=== PATIENT | male | born 1940 | race Caucasian/White ===

== ENCOUNTER 2017-10-27 08:17 | Inpatient (IN) | payer MEDICARE, OTHER ==
[~2017-10-27] VITALS: Ht 177.8 cm; Wt 143.0 kg
[2017-10-27] MEDS ORDERED: ASPIRIN 81 MG TABLET CHEW PO ONE (09:00)
[2017-10-27] MEDS ORDERED: SODIUM CHLORIDE 0.9% 1,000ML IVBOLUS ONE ×2 (09:00)
[2017-10-27] MEDS ORDERED: ASPIRIN 81 MG TABLET CHEW ONE (09:11)
[2017-10-27 09:16] LABS: BASOPHILS # (AUTO) 0.03 x10^3/uL (0-0.1); BASOPHILS % (AUTO) 0 % (0-1); EOSINOPHILS # (AUTO) 0.01 x10^3/uL (0-0.4); EOSINOPHILS % (AUTO) 0 % (1-7); LYMPHOCYTES % (AUTO) 6 % (22-44); MD NO; MEAN CORPUSCULAR HEMOGLOBIN 29.8 pg (27.5-34.5); MEAN CORPUSCULAR HGB CONC 31.8 g/dL (33.2-36.2); MEAN CORPUSCULAR VOLUME 93.6 fL (81-97); MEAN PLATELET VOLUME 8.5 fL (7.4-10.4); MONOCYTES # (AUTO) 0.64 x10^3/uL (0.2-0.8); MONOCYTES % (AUTO) 7 % (2-9); NEUTROPHILS # (AUTO) 8.38 x10^3/uL (1.8-6.8); NEUTROPHILS % (AUTO) 87 % (42-75); PLATELET COUNT 208 x10^3/uL (130-400); RED BLOOD COUNT 3.77 x10^6/uL (4.38-5.82); RED CELL DISTRIBUTION WIDTH 16.2 % (9.4-14.8)
[2017-10-27 09:23] LABS: INTERNATIONAL NORMALIZED RATIO 1.23 (0.93-1.1)
[2017-10-27 09:29] LABS: ALBUMIN 2.3 g/dL (3.4-5.0); ANION GAP 7 mmol/L (5-15); CALCIUM 7.9 mg/dL (8.5-10.1); CHLORIDE 106 mmol/L (98-107)
[2017-10-27 09:35] LABS: ALANINE AMINOTRANSFERASE 17 U/L (12-78); ALKALINE PHOSPHATASE 71 U/L (45-117); BILIRUBIN,TOTAL 0.7 mg/dL (0.2-1.0); CREATININE 1.41 mg/dL (0.7-1.3); FREE T4 (FREE THYROXINE) 1.11 ng/dL (0.76-1.46); PROTHROMBIN TIME 12.7 Seconds (9.6-11.5); TOTAL PROTEIN 7.6 g/dL (6.4-8.2); TROPONIN I 0.073 ng/mL (0.000-0.045)
[2017-10-27 09:53] LABS: ACETONE, SERUM Negative (Negative)
[2017-10-27] MEDS ORDERED: ASPI-515 PO (10:22)
[2017-10-27] MEDS ORDERED: HEPARIN 5,000 UNITS/ML, 1ML ONE (11:48)
[2017-10-27] MEDS ORDERED: METOPROLOL 1 MG/ML, 5ML ONE (11:48)
[2017-10-27] MEDS ORDERED: HEPARIN 25,000 UNITS/500ML PMX 500 ML ONE (11:48)
[2017-10-27] MEDS ORDERED: METOPROLOL 1 MG/ML, 5ML IVPush ONE (12:00)
[2017-10-27 12:21] LABS: MICROSCOPIC INDICATED
[2017-10-27 12:24] LABS: CULTURE INDICATED? YES
[2017-10-27] MEDS ORDERED: NITROGLYCERIN 0.4 MG BOTTLE (25 TABS) SL PRN (12:30)
[2017-10-27] MEDS ORDERED: ONDANSETRON 2MG/ML, 2ML IV PRN (12:30)
[2017-10-27] MEDS ORDERED: BISACODYL 5 MG EC TABLET PO PRN (12:30)
[2017-10-27] MEDS ORDERED: FUROSEMIDE 20 MG/2 ML IVPush SCH ×2 (12:30→21:00)
[2017-10-27] MEDS ORDERED: FUROSEMIDE 20 MG/2 ML ONE (12:48)
[2017-10-27] MEDS ORDERED: FAMOTIDINE 20 MG/2 ML ONE (12:48)
[2017-10-27 12:50] LABS: CHOL/HDL RATIO 2.3
[2017-10-27] MEDS ORDERED: HEPARIN 5,000 UNITS/ML, 1ML IV ONE (13:00)
[2017-10-27 13:07] LABS: HEMOGLOBIN A1C 9.5 % (4.2-6.3)
[2017-10-27] MEDS ORDERED: GADOBUTROL 10 MMOL/10 ML VIAL ONE (13:11)
[2017-10-27 13:46] VITALS: BP 122/83
[2017-10-27] MEDS: HEPARIN 25,000 UNITS/500ML PMX 500 ML IV PRN (13:58)
[2017-10-27] MEDS: FAMOTIDINE 20 MG TABLET PO SCH (14:58)
[2017-10-27] MEDS: INSULIN LISPRO 100 UNITS/ML, PEN SQ-INSULIN SCH ×3 (14:58→21:00)
[2017-10-27] MEDS: CEFTRIAXONE 1,000 MG in SODIUM CHLORIDE 0.9% 50 ML IV SCH (15:16)
[2017-10-27] MEDS: NYSTATIN TOPICAL POWDER 15GM TP SCH ×3 (15:16→21:27)
[2017-10-27 15:49] VITALS: BP 122/72
[2017-10-27 17:50] VITALS: BP 106/63
[2017-10-27] MEDS: CARVEDILOL 12.5 MG TABLET PO SCH (17:52)
[2017-10-27 18:56] VITALS: BP 116/83
[2017-10-27] MEDS ORDERED: DEXTROSE 4 GM TAB.CHEW PO PRN (21:00)
[2017-10-27] MEDS ORDERED: DEXTROSE 50%, 50ML SYRINGE IVPush PRN (21:00)
[2017-10-27] MEDS: INSULIN GLARGINE 100 UNITS/ML, PEN SQ-INSULIN SCH (21:00)
[2017-10-27] MEDS ORDERED: GLUCAGON 1 MG IM PRN (21:00)
[2017-10-27] MEDS: FUROSEMIDE 20 MG/2 ML IVPush SCH (21:28)
[2017-10-27] MEDS: SODIUM CHLORIDE FLUSH 10ML SYR IVF SCH ×2 (21:28)
[2017-10-27] MEDS: HEPARIN 5,000 UNITS/ML, 1ML IV PRN (21:28)
[2017-10-28 01:12] LABS: AMPHETAMINE SCREEN, URINE Negative (Negative); BARBITURATE SCREEN, URINE Negative (Negative); BENZODIAZEPINE SCREEN, URINE Negative (Negative); CANNABINOID SCREEN, URINE Negative (Negative); COCAINE SCREEN, URINE Negative (Negative); METHADONE SCREEN, URINE Negative (Negative); OPIATE SCREEN, URINE Negative (Negative)
[2017-10-28 01:23] VITALS: BP 110/50
[2017-10-28 03:49] LABS: TROPONIN I 0.067 ng/mL (0.000-0.045)
[2017-10-28 05:35] VITALS: BP 107/71
[2017-10-28] MEDS: CARVEDILOL 12.5 MG TABLET PO SCH ×2 (05:36→18:09)
[2017-10-28] MEDS: ASPIRIN 81 MG TABLET EC PO SCH (05:37)
[2017-10-28] MEDS: LEVOTHYROXINE 25 MCG TABLET PO SCH (05:37)
[2017-10-28] MEDS: HEPARIN 5,000 UNITS/ML, 1ML IV PRN (05:37)
[2017-10-28] MEDS ORDERED: LEVOTHYROXINE 50 MCG TABLET PO SCH (06:00)
[2017-10-28 07:31] VITALS: BP 114/56
[2017-10-28 08:11] LABS: BASOPHILS # (AUTO) 0.03 x10^3/uL (0-0.1); BASOPHILS % (AUTO) 0 % (0-1); EOSINOPHILS # (AUTO) 0.01 x10^3/uL (0-0.4); EOSINOPHILS % (AUTO) 0 % (1-7); LYMPHOCYTES # (AUTO) 0.89 x10^3/uL (1-3.4); LYMPHOCYTES % (AUTO) 9 % (22-44); MD NO; MEAN CORPUSCULAR HEMOGLOBIN 29.6 pg (27.5-34.5); MEAN CORPUSCULAR HGB CONC 31.9 g/dL (33.2-36.2); MEAN CORPUSCULAR VOLUME 92.8 fL (81-97); MEAN PLATELET VOLUME 9.4 fL (7.4-10.4); MONOCYTES # (AUTO) 0.65 x10^3/uL (0.2-0.8); MONOCYTES % (AUTO) 6 % (2-9); NEUTROPHILS # (AUTO) 8.71 x10^3/uL (1.8-6.8); NEUTROPHILS % (AUTO) 85 % (42-75); PLATELET COUNT 199 x10^3/uL (130-400); RED BLOOD COUNT 3.64 x10^6/uL (4.38-5.82); RED CELL DISTRIBUTION WIDTH 16.2 % (9.4-14.8)
[2017-10-28] MEDS: INSULIN LISPRO 100 UNITS/ML, PEN SQ-INSULIN SCH ×4 (08:12→21:00)
[2017-10-28 08:15] LABS: ALANINE AMINOTRANSFERASE 16 U/L (12-78); ANION GAP 11 mmol/L (5-15); CALCIUM 7.6 mg/dL (8.5-10.1); CHLORIDE 105 mmol/L (98-107); CREATININE 1.51 mg/dL (0.7-1.3)
[2017-10-28 08:17] LABS: ALKALINE PHOSPHATASE 64 U/L (45-117); BILIRUBIN,TOTAL 0.6 mg/dL (0.2-1.0); TOTAL PROTEIN 7.2 g/dL (6.4-8.2)
[2017-10-28 08:35] LABS: INTERNATIONAL NORMALIZED RATIO 1.33 (0.93-1.1); PROTHROMBIN TIME 13.8 Seconds (9.6-11.5)
[2017-10-28] MEDS: SODIUM CHLORIDE FLUSH 10ML SYR IVF SCH ×4 (09:00→22:22)
[2017-10-28] MEDS: FUROSEMIDE 20 MG/2 ML IVPush SCH ×2 (09:00→22:21)
[2017-10-28] MEDS: INSULIN GLARGINE 100 UNITS/ML, PEN SQ-INSULIN SCH ×2 (09:00→23:43)
[2017-10-28] MEDS: FAMOTIDINE 20 MG TABLET PO SCH (09:39)
[2017-10-28] MEDS: HEPARIN 25,000 UNITS/500ML PMX 500 ML IV PRN (09:39)
[2017-10-28] MEDS: NYSTATIN TOPICAL POWDER 15GM TP SCH ×3 (13:00→22:42)
[2017-10-28 13:11] VITALS: BP 116/56
[2017-10-28] MEDS: CEFTRIAXONE 1,000 MG in SODIUM CHLORIDE 0.9% 50 ML IV SCH (14:33)
[2017-10-28 19:27] VITALS: BP 122/82
[2017-10-28] MEDS ORDERED: MIDAZOLAM 1 MG/ML, 2ML ONE (19:46)
[2017-10-28] MEDS ORDERED: PROPOFOL 10 MG/ML, 20ML ONE (20:05)
[2017-10-28] MEDS ORDERED: NEOSTIGMINE 1 MG/ML, 10ML ONE (20:05)
[2017-10-28] MEDS ORDERED: FENTANYL PF 250 MCG/5ML ONE (20:38)
[2017-10-28] MEDS ORDERED: OXYcodone 5 MG/5 ML ORAL.SOL UDC PO PRN (21:00)
[2017-10-28] MEDS ORDERED: FENTANYL PF 100 MCG/2ML IV PRN (21:00)
[2017-10-28] MEDS ORDERED: ONDANSETRON ODT 8 MG PO PRN (21:00)
[2017-10-28] MEDS ORDERED: PROMETHAZINE 12.5 MG SUPP PR PRN (21:00)
[2017-10-28] MEDS ORDERED: MORPHINE SULFATE 4 MG/ML, 1ML IVPush PRN (21:00)
[2017-10-29 00:39] VITALS: BP 115/78
[2017-10-29] MEDS: HEPARIN 5,000 UNITS/ML, 1ML IV PRN ×2 (05:10→13:05)
[2017-10-29] MEDS: ASPIRIN 81 MG TABLET EC PO SCH (05:53)
[2017-10-29] MEDS: CARVEDILOL 12.5 MG TABLET PO SCH ×2 (05:53→18:08)
[2017-10-29] MEDS: LEVOTHYROXINE 25 MCG TABLET PO SCH (05:53)
[2017-10-29] MEDS: INSULIN LISPRO 100 UNITS/ML, PEN SQ-INSULIN SCH ×4 (07:00→21:16)
[2017-10-29 07:35] VITALS: BP 124/72
[2017-10-29 08:36] LABS: BASOPHILS # (AUTO) 0.03 x10^3/uL (0-0.1); BASOPHILS % (AUTO) 0 % (0-1); EOSINOPHILS # (AUTO) 0.02 x10^3/uL (0-0.4); EOSINOPHILS % (AUTO) 0 % (1-7); LYMPHOCYTES # (AUTO) 1.13 x10^3/uL (1-3.4); LYMPHOCYTES % (AUTO) 11 % (22-44); MD NO; MEAN CORPUSCULAR HEMOGLOBIN 29.7 pg (27.5-34.5); MEAN CORPUSCULAR HGB CONC 31.8 g/dL (33.2-36.2); MEAN CORPUSCULAR VOLUME 93.3 fL (81-97); MEAN PLATELET VOLUME 9.4 fL (7.4-10.4); MONOCYTES # (AUTO) 0.53 x10^3/uL (0.2-0.8); MONOCYTES % (AUTO) 5 % (2-9); NEUTROPHILS # (AUTO) 9.04 x10^3/uL (1.8-6.8); NEUTROPHILS % (AUTO) 84 % (42-75); PLATELET COUNT 209 x10^3/uL (130-400); RED BLOOD COUNT 3.61 x10^6/uL (4.38-5.82)
[2017-10-29 08:47] LABS: ANION GAP 8 mmol/L (5-15); CALCIUM 8.1 mg/dL (8.5-10.1); CHLORIDE 104 mmol/L (98-107); CREATININE 1.82 mg/dL (0.7-1.3)
[2017-10-29] MEDS: SODIUM CHLORIDE FLUSH 10ML SYR IVF SCH ×3 (09:00→21:00)
[2017-10-29] MEDS: FAMOTIDINE 20 MG TABLET PO SCH (09:08)
[2017-10-29] MEDS: FUROSEMIDE 20 MG/2 ML IVPush SCH ×2 (09:09→22:00)
[2017-10-29] MEDS: INSULIN GLARGINE 100 UNITS/ML, PEN SQ-INSULIN SCH ×2 (09:11→21:16)
[2017-10-29] MEDS: NYSTATIN TOPICAL POWDER 15GM TP SCH ×3 (09:12→21:17)
[2017-10-29] MEDS: HEPARIN 25,000 UNITS/500ML PMX 500 ML IV PRN ×2 (09:47→21:51)
[2017-10-29 13:45] VITALS: BP 127/76
[2017-10-29] MEDS: CEFTRIAXONE 1,000 MG in SODIUM CHLORIDE 0.9% 50 ML IV SCH (14:51)
[2017-10-29 19:30] VITALS: BP 104/64
[2017-10-29] MEDS: ALBUMIN HUMAN 25% 50 ML IV SCH (21:15)
[2017-10-29] MEDS ORDERED: ACETAMINOPHEN 325 MG TABLET ONE (22:03)
[2017-10-29] MEDS: ACETAMINOPHEN 650 MG/20.3 ML UDC PO PRN (22:15)
[2017-10-30 00:40] VITALS: BP 92/59
[2017-10-30 05:48] LABS: BASOPHILS # (AUTO) 0.01 x10^3/uL (0-0.1); BASOPHILS % (AUTO) 0 % (0-1); EOSINOPHILS # (AUTO) 0.07 x10^3/uL (0-0.4); EOSINOPHILS % (AUTO) 1 % (1-7); LYMPHOCYTES # (AUTO) 1.26 x10^3/uL (1-3.4); LYMPHOCYTES % (AUTO) 13 % (22-44); MD NO; MEAN CORPUSCULAR HEMOGLOBIN 30.2 pg (27.5-34.5); MEAN CORPUSCULAR HGB CONC 32.1 g/dL (33.2-36.2); MEAN CORPUSCULAR VOLUME 94.3 fL (81-97); MONOCYTES # (AUTO) 0.89 x10^3/uL (0.2-0.8); MONOCYTES % (AUTO) 9 % (2-9); NEUTROPHILS # (AUTO) 7.85 x10^3/uL (1.8-6.8); NEUTROPHILS % (AUTO) 78 % (42-75); PLATELET COUNT 210 x10^3/uL (130-400); RED BLOOD COUNT 3.55 x10^6/uL (4.38-5.82); RED CELL DISTRIBUTION WIDTH 16.7 % (9.4-14.8)
[2017-10-30 06:00] LABS: ALBUMIN 2.1 g/dL (3.4-5.0); CHLORIDE 103 mmol/L (98-107)
[2017-10-30 06:03] LABS: ANION GAP 10 mmol/L (5-15); CALCIUM 8.1 mg/dL (8.5-10.1); CREATININE 2.22 mg/dL (0.7-1.3)
[2017-10-30] MEDS ORDERED: ACETAMINOPHEN 325 MG TABLET ONE (06:17)
[2017-10-30] MEDS: LEVOTHYROXINE 25 MCG TABLET PO SCH (06:27)
[2017-10-30] MEDS: ASPIRIN 81 MG TABLET EC PO SCH (06:27)
[2017-10-30] MEDS: ACETAMINOPHEN 650 MG/20.3 ML UDC PO PRN (06:27)
[2017-10-30 06:28] VITALS: BP 102/67
[2017-10-30] MEDS: CARVEDILOL 12.5 MG TABLET PO SCH (06:28)
[2017-10-30] MEDS: INSULIN LISPRO 100 UNITS/ML, PEN SQ-INSULIN SCH ×2 (07:00→11:00)
[2017-10-30] MEDS: SODIUM CHLORIDE FLUSH 10ML SYR IVF SCH (08:31)
[2017-10-30] MEDS: FAMOTIDINE 20 MG TABLET PO SCH (08:32)
[2017-10-30] MEDS ORDERED: INSULIN GLARGINE 100 UNITS/ML, PEN SQ-INSULIN SCH (09:00)
[2017-10-30 09:30] VITALS: BP 107/72
[2017-10-30] MEDS: ALBUMIN HUMAN 25% 50 ML IV SCH (09:31)
[2017-10-30] MEDS: NYSTATIN TOPICAL POWDER 15GM TP SCH (09:34)
[2017-10-30] MEDS: FUROSEMIDE 20 MG/2 ML IVPush SCH (11:44)
[2017-10-30 13:44] VITALS: BP 110/64
[2017-10-30] MEDS: CEFTRIAXONE 1,000 MG in SODIUM CHLORIDE 0.9% 50 ML IV SCH (14:00)
== END 2017-10-30 16:15 | disposition hospice, home (50) | DRG 682 ==
LOC: ED 10:21 → EDIP 10:57 → 5SO 13:33
PROVIDERS: ADMIT Hospitalist; ATTEND Hospitalist
PROC: 0T9B8ZZ Drainage of Bladder, Via Natural or Artificial Opening Endoscopic (ICD-10-PCS; principal; 2017-10-28 21:00)
DX: N17.9 Acute kidney failure, unspecified (principal); I50.43 Acute on chronic combined systolic (congestive) and diastolic (congestive) heart failure; N39.0 Urinary tract infection, site not specified; D68.69 Other thrombophilia; E46 Unspecified protein-calorie malnutrition; Z68.42 Body mass index [BMI] 45.0-49.9, adult; I48.92 Unspecified atrial flutter; I42.0 Dilated cardiomyopathy; I48.91 Unspecified atrial fibrillation; L97.519 Non-pressure chronic ulcer of other part of right foot with unspecified severity; N47.1 Phimosis; E66.01 Morbid (severe) obesity due to excess calories; E03.9 Hypothyroidism, unspecified; E11.51 Type 2 diabetes mellitus with diabetic peripheral angiopathy without gangrene; E11.621 Type 2 diabetes mellitus with foot ulcer; E11.65 Type 2 diabetes mellitus with hyperglycemia; I11.0 Hypertensive heart disease with heart failure; J44.9 Chronic obstructive pulmonary disease, unspecified; K76.9 Liver disease, unspecified; Z66 Do not resuscitate; Z79.899 Other long term (current) drug therapy; Z83.3 Family history of diabetes mellitus; Z91.19 Patient's noncompliance with other medical treatment and regimen; Z99.3 Dependence on wheelchair; Z89.432 Acquired absence of left foot; Z90.49 Acquired absence of other specified parts of digestive tract; Z87.891 Personal history of nicotine dependence
CPT/HCPCS: 36415; 70551; 71045; 76700; 76775; 80053; 80061; 80069; 80074; 80307; 81001; 82010; 82728; 82800; 82962; 83036; 83540; 83550; 83735; 83880; 84439; 84443; 84484; 85025; 85520; 85610; 87077; 87086; 87186; 93005; 93308; 93325; 96361; 96374; 99285; A9585; J0696; J1644; J2250; J2704; J2710; J3010; P9047; C1769; J1815; J1940; J7030